=== PATIENT | female | born 1995 | race Caucasian/White ===

== ENCOUNTER 2018-07-26 05:32 | Inpatient (IN) ==
--- NOTE | 2018-07-25 18:58 | History and Physical Report ---
DATE OF ADMISSION: 07/26/2018 REASON FOR ADMISSON: She is scheduled for a primary section on 07/26/2018 on labor and delivery at [facility]. HISTORY OF PRESENT ILLNESS: The patient is a 22-year-old female 1, para 0, who presents to labor and delivery at 40 weeks and 3 days, with a history of macrosomia with the current . She had an ultrasound which revealed the baby to be at the 95th percentile with estimated weight of 4931 g, done yesterday 07/24/2018 by ultrasound revealing a 10 pound 14 ounce baby. She had a biophysical profile of 8/8 at that time. GBS is negative. PAST MEDICAL HISTORY: Significant for polycystic ovarian syndrome and exercise induced asthma. Prior exposure to alcohol in the first and second trimester and chlamydia in the second trimester treated. PAST SURGICAL HISTORY: Reduction of breast, tonsils. No other surgery. FAMILY HISTORY: Noncontributory. REVIEW OF SYSTEMS: Negative. ALLERGIES: No known allergies. MEDICATIONS: Current medications include vitamins. PHYSICAL EXAMINATION: HEENT: Within normal limits. LUNGS: Clear to auscultation. CARDIOVASCULAR: Regular rate and rhythm. GASTROINTESTINAL: Abdomen is soft, nontender, gravid. heart tone category 1. NEUROLOGIC: No neurologic disorders. SKIN: Warm and dry. No rash. ASSESSMENT: Term with macrosomia. I discussed pros and cons of elective primary section versus trial of labor. The patient opted for section due to increased risk of shoulder dystocia and trauma, consented for above. We will proceed with primary section.
[2018-07-26] MEDS ORDERED: LACTATED RINGER'S 1,000 ML IV SCH ×3 (05:45→09:15)
[2018-07-26] MEDS ORDERED: CEFAZOLIN 3,000 MG in DEXTROSE 5% 50 ML IV STA (05:48)
[2018-07-26] MEDS ORDERED: CITRIC ACID/SODIUM CITRATE 15 ML UDC PO STA (05:49)
[2018-07-26 06:02] LABS: Basophils # (auto) 0.01 K/uL (0-0.2); Basophils % (auto) 0.1 %; Eosinophils # (auto) 0.08 K/uL (0-0.5); Eosinophils % (auto) 0.8 %; Hematocrit (blood only) 37.9 % (37-47); Hemoglobin 12.7 g/dL (12.0-16.0); Immature Granulocytes # (auto) 0.06 K/uL (0.00-0.02); Immature Granulocytes % (auto) 0.6 %; Lymphocytes # (auto) 1.68 K/uL (1.2-3.4); Lymphocytes % (auto) 16.2 %; Mean Platelet Volume 10.3 fL (7.4-10.4); Monocytes # (auto) 0.56 K/uL (0.11-0.59); Monocytes % (auto) 5.4 %; Neutrophils # (auto) 8.01 K/uL (1.4-6.5); Neutrophils % (auto) 76.9 %; Platelet Count 200 K/uL (130-400); RDW Standard Deviation 43.7 fL (36.4-46.3); Red Blood Count 4.74 M/uL (4.2-5.4)
[2018-07-26 06:08] LABS: Mean Corpuscular Hgb Conc 33.5 g/dL (32-36)
--- NOTE | 2018-07-26 06:59 | Anesthesiology Consultation ---
Date of Service July 26, 2018 Assessment & Plan Chart Review Chart Review: Acceptable Risk for Surgery and Patient NOT seen in Pre Admission Testing Consults Requested none ASA ASA2 Proposed Anesthesia Anesthesia Type: Spinal Risk / Benefits Reviewed With: PT / POA / Parent / Guardian, Accepts Plan and Informed Consent Obtained NPO Date Last Intake of Fluids: 07/25/18 Time Last Intake of Fluids: 21:00 Date Last Intake of Solids: 07/25/18 Time Last Intake of Solids: 20:00 History Surgery Operation Date: 07/26/18 07:30 Proposed Procedures p Section in LD - Benson Dubois MD Height/Weight Height: 5 ft 11 in Weight: 119.295 kg Allergies Allergy/AdvReac Type Severity Reaction Status Date / Time No Known Allergies Allergy Verified 07/25/18 12:03 Medications Home Medications Medication Instructions Recorded Confirmed Last Taken PNV cmb#95-ferrous fumarate-FA 1 tab PO QAM 07/25/18 07/26/18 07/25/18 09:00 [] Active Medications Generic Name Dose Route Start Last Admin Trade Name Freq PRN Reason Stop Dose Admin Lactated Ringer's 1,000 mls @ 125 mls/hr 07/26/18 06:37 07/26/18 07:04 Lr IV 08/25/18 06:36 125 mls/hr .Q8H TOÑITO Administration Past Medical History Medical History Asthma SPORTS INDUCED PCOS (polycystic ovarian syndrome) Past Surgical History Surgical History [place] teeth removed Hx of breast reduction, elective Hx of tonsillectomy Past Anesthesia History No Hx of Anesthesia Complications History of PONV No Motion Sickness Screening History of Motion Sickness: Yes Social History Smoking Status: Never smoker Do You Dip or Chew Tobacco: No Hx Alcohol Use: Yes (Used before found out was at 24wks) Alcohol type: beer and hard liquor alcohol intake frequency: a few times a month Hx Substance Use: No substance use type: does not use Exercise / Class Metabolic Activity II 4-5 Yardwork/Stairs/Walk up hill Negative for chest pain or shortness of breath. Review of Systems Patient denies active symptoms of GERD. Patient denies history of abnormal bleeding or bleeding disorder. Patient denies active use of anticoagulants. Patient denies numbness, tingling or weakness in his lower extremities. Patient denies numbness, tingling or weakness in upper extremities. Physical Exam Vital Signs Last Vital Signs Temp 36.7 C 07/26/18 05:50 Pulse 107 H 07/26/18 05:50 Resp 18 07/26/18 05:50 BP 126/78 07/26/18 05:50 Constitutional not obese (Gravid uterus ) ENMT Mouth: no TMJ abnormality and oral opening not small Thyromental Distance: > or= 3.5 Finger Breadths Mallampati Class: II Neck normal visual inspection; neck extension not limited Respiratory normal respiratory effort Auscultation: lungs clear to auscultation bilaterally Cardiovascular Rate/Rhythm: regular rate and regular rhythm Heart Sounds: no murmur Psychiatric A+Ox3, euthymic affect Orientation: alert and oriented x 3 Testing Laboratory Results 07/26/18 05:50
[2018-07-26] MEDS ORDERED: CEFAZOLIN 2000MG 2,000 MG/15 ML SYR IV SCH (07:00)
--- NOTE | 2018-07-26 07:19 | History & Physical Bridge Note ---
Date of Service July 26, 2018 History & Physical Bridge Note I have examined the patient, reviewed the History & Physical and in the interval since the performance of the History & Physical I have noted the following changes of clinical significance: no changes noted
[2018-07-26] MEDS ORDERED: MoRPHine SULFATE PF 1 MG/ML 10 ML AMP/VIAL ONE (07:25)
[2018-07-26] MEDS ORDERED: fentaNYL citrate 100 MCG/2 ML VIAL ONE (07:25)
[2018-07-26] MEDS ORDERED: ONDANSETRON INJ 2 MG/ML 2 ML VIAL ONE (08:11)
[2018-07-26] MEDS ORDERED: OXYTOCIN 10 UNITS/ML VIAL ONE (08:11)
[2018-07-26] MEDS ORDERED: KETOROLAC 30 MG/ML VIAL ONE (08:30)
[2018-07-26] MEDS ORDERED: PHENYLEPHRINE 100MCG/ML 5ML SYR ONE (08:54)
[2018-07-26] MEDS ORDERED: ePHEDrine sulfate 50 MG/ML SYR ONE (08:54)
--- NOTE | 2018-07-26 09:04 | Post Operative Brief Note ---
Immediate Post Op Note v1 Date of Surgery July 26, 2018 Pre & Post Diagnosis Operation Date: 07/26/18 07:30 Pre-Op Diagnosis: Macrosomia Post-Op Diagnosis: macrosmia, Post-dates Procedure Operation Date: 07/26/18 07:30 Actual Procedures p Section in LD(Bilateral) - Benson Dubois MD Surgeon Benson Dubois MD Manager Biostatistics Dr. Guaman Estimated Blood Loss 600 Findings Consistent with Post-Op Diagnosis Drains Blevins Catheter
[2018-07-26] MEDS ORDERED: MEASLES, MUMPS & RUBELLA VIRUS VIAL SQ ONE (09:06)
[2018-07-26] MEDS ORDERED: BENZOCAINE 20% AER SPR 82.5 GM CAN EXT PRN (09:06)
[2018-07-26] MEDS ORDERED: MAGNESIUM HYDROXIDE SUSP 30 ML UDC PO PRN (09:06)
[2018-07-26] MEDS ORDERED: PROMETHAZINE HCL 25 MG in SODIUM CHLORIDE 0.9% 50 ML IV PRN (09:06)
[2018-07-26] MEDS ORDERED: SENNA 8.6 MG TAB PO PRN (09:06)
[2018-07-26] MEDS ORDERED: DIPHTHERIA/TETANUS/PERTUSSIS 0.5 ML SYR/VIAL IM ONE (09:06)
[2018-07-26] MEDS ORDERED: HYDROCORTISONE ACETATE 25 MG SUPP PR PRN (09:06)
[2018-07-26] MEDS ORDERED: SUPERCREAM 0.870% 15 GM JAR EXT PRN (09:06)
[2018-07-26] MEDS ORDERED: ACETAMINOPHEN 1000 MG/100 ML IV IV PRN (09:11)
[2018-07-26] MEDS ORDERED: NALOXONE HCL 1 MG in SODIUM CHLORIDE 0.9% 1000ML 1,000 ML IV PRN (09:12)
[2018-07-26] MEDS ORDERED: NALOXONE HCL 0.4 MG/1 ML VIAL/CARP IV PRN (09:12)
[2018-07-26] MEDS ORDERED: NALBUPHINE HCL INJ 10 MG/ML AMP IV PRN (09:12)
[2018-07-26] MEDS ORDERED: HYDROmorphone INJ 0.5 MG/0.5 ML SYR IV PRN (09:12)
[2018-07-26] MEDS ORDERED: ePHEDrine sulfate 50 MG/ML AMP IV PRN (09:12)
[2018-07-26] MEDS ORDERED: LACTATED RINGER'S 500 ML IV PRN (09:12)
[2018-07-26] MEDS ORDERED: ONDANSETRON INJ 2 MG/ML 2 ML VIAL IV PRN (09:12)
[2018-07-26] MEDS ORDERED: NALOXONE HCL 0.08 MG in SYRINGE 1.8 ML IV PRN (09:12)
[2018-07-26] MEDS ORDERED: DiphenhydrAMINE HCL 50 MG/ML VIAL IV PRN (09:12)
[2018-07-26] MEDS ORDERED: MoRPHine SULFATE PF 1 MG/ML 10 ML AMP/VIAL INT SPINAL ONE (09:12)
[2018-07-26] MEDS ORDERED: DC INTRASPINAL MORPHINE SCH (09:15)
[2018-07-26] MEDS ORDERED: NO NARCOTICS OR SEDATIVES SCH (09:15)
[2018-07-26] MEDS ORDERED: SODIUM CHLORIDE 0.9% 1000ML 1,000 ML IV SCH (09:15)
--- NOTE | 2018-07-26 10:36 | Anesthesiology Progress Note ---
Date of Service July 26, 2018 Anesthesia Post Procedure Vital Signs Vital Signs: Temp Pulse Resp BP Pulse Ox 07/26/18 10:35 86 98 07/26/18 10:30 103 H 98 07/26/18 10:26 94 H 105/60 07/26/18 10:25 88 98 07/26/18 10:20 101 H 98 07/26/18 10:18 18 07/26/18 10:16 104 H 105/57 L 07/26/18 10:15 99 H 97 07/26/18 10:10 108 H 18 98 07/26/18 10:07 113 H 96/58 L 07/26/18 10:06 116 H 87/66 L 07/26/18 10:05 102 H 97 07/26/18 10:00 111 H 18 98 07/26/18 09:56 104 H 107/52 L 07/26/18 09:55 112 H 98 07/26/18 09:51 112 H 94 07/26/18 09:50 109 H 18 95 07/26/18 09:48 100 H 121/61 07/26/18 09:45 110 H 97 07/26/18 09:43 113 H 240/134 H 07/26/18 09:40 112 H 18 97 07/26/18 09:35 115 H 96 07/26/18 09:30 117 H 18 98 07/26/18 09:25 111 H 99 07/26/18 09:20 112 H 20 93 07/26/18 09:16 84 105/57 L 07/26/18 09:15 100 H 100 07/26/18 09:14 98 H 92 07/26/18 09:10 36.2 C L 91 H 20 100 07/26/18 09:05 93 H 118/58 L 100 07/26/18 05:50 36.7 C 107 H 18 126/78 07/26/18 05:47 107 H 126/78 Notes Mental Status: alert / awake / arousable and participated in evaluation Nausea / Vomiting: adequately controlled Pain: adequately controlled Airway Patency, RR, SpO2: stable & adequate BP & HR: stable & adequate Hydration State: stable & adequate Neuraxial Anesthesia: was administered and sensory block is resolving Anesthetic Complications: no major complications apparent
[2018-07-26] MEDS: OXYTOCIN 30 UNITS in LACTATED RINGER'S 1,000 ML IV SCH ×2 (11:29→20:14)
--- NOTE | 2018-07-26 12:58 | Operative Report ---
DATE OF OPERATION: 07/26/2018 PREOPERATIVE DIAGNOSIS: macrosomia. POSTOPERATIVE DIAGNOSIS: macrosomia. PROCEDURE: Primary section, low segment, transverse. SURGEON: Benson Dubois MD. WOOD ROOM HAND: Susana Guaman MD. ANESTHESIA: Spinal with Duramorph. TOTAL FLUIDS: 2200 mL. TOTAL URINE OUTPUT: 300 mL. ESTIMATED BLOOD LOSS: 600 mL. FINDINGS: Live male, Apgars 9 and 10. Cord around the neck x1. weight 9 pounds 10 ounces CLINICAL HISTORY: The patient is a 22-year-old female 1, para 0 at 40 weeks and 3 days, who was admitted for an elective primary section for macrosomia. Patient was given informed consent regarding risk of delivery with complications including shoulder dystocia and injury versus primary section. The estimated weight was almost 5000 g by ultrasound done several days ago. Patient opted for a primary section. She was given informed consent including the risks, benefits, and alternatives to the procedure. A timeout was called prior to the start of the procedure, and antibiotics were given preop. DESCRIPTION OF PROCEDURE: Under satisfactory spinal anesthesia, the patient was prepped and draped in the usual sterile fashion. A low Pfannenstiel incision was made entering into the abdominal cavity in successive layers without difficulty. Upon entering into the abdominal cavity, Metzenbaums were used to create a bladder flap. This was sharply dissected down. A low segment transverse incision was made. The incision was widened in the AP diameter. Amniotic sac was nicked, clear. Infant was delivered from the vertex presentation with the aid of fundal pressure. There was a nuchal cord x1 that was reduced at the time of delivery. The cord was doubly clamped and cut. Baby was handed to agriculture professor. Live male, Apgars were 9 and 10, weight 9 pounds 10 ounces. Cord blood was obtained. Placenta was then delivered spontaneously and intact. Uterus was then exteriorized. Ring forceps were then used to grab both angles in the inferior margin, another ring was then used to dilate the cervix. Following this, uterus was closed in a double layered closure starting with a 0 Vicryl suture in a continuous interlocking fashion followed by a second imbricating suture of 0 Vicryl suture. Tubes and ovaries bilaterally were found to be within normal limits. The contents of the uterine cavity were then irrigated to clear. The initial sponge, needle, instrument counts were found to be correct. Uterus was placed back into the normal anatomical position. Both angles were inspected. Gutters were inspected, no active bleeding noted. The fascia was then reapproximated from both ends using 0 Vicryl suture in a continuous fashion. Subcuticular space was then irrigated. The subcuticular layer was closed with 3-0 plain suture in an interrupted fashion, and the subcuticular skin layer was then closed with 4-0 Monocryl suture. Steri-Strips were then applied. Clear urine was noted from the Blevins. The estimated blood loss was 600 mL. At the end of the procedure, a PACU dressing was applied. After the dressing was on, the patient was then placed supine on a stretcher and taken to recovery room in stable condition. I attest to the content of the Intraoperative Record and any orders documented therein. Any exception s are noted below.
[2018-07-26] MEDS: SIMETHICONE 80 MG CHEW PO SCH ×3 (15:30→20:13)
[2018-07-26] MEDS: DOCUSATE SODIUM 100 MG CAP PO SCH (20:13)
[2018-07-26] MEDS: KETOROLAC 30 MG/ML VIAL IV PRN (20:14)
[2018-07-27] MEDS: KETOROLAC 30 MG/ML VIAL IV PRN (01:53)
[2018-07-27] MEDS: OXYTOCIN 30 UNITS in LACTATED RINGER'S 1,000 ML IV SCH (04:01)
[2018-07-27 06:24] LABS: Hematocrit (blood only) 26.3 % (37-47); Hemoglobin 8.6 g/dL (12.0-16.0); Mean Corpuscular Hgb Conc 32.7 g/dL (32-36); Mean Corpuscular Volume 80.2 fL (80-100); Mean Platelet Volume 10.1 fL (7.4-10.4); Platelet Count 145 K/uL (130-400); RDW Coefficient of Variation 15.4 % (11.5-14.5); RDW Standard Deviation 44.8 fL (36.4-46.3); Red Blood Count 3.28 M/uL (4.2-5.4); White Blood Count 12.98 K/uL (4.8-10.8)
[2018-07-27 07:13] LABS: Basophils # (auto) 0.02 K/uL (0-0.2); Basophils % (auto) 0.2 %; Eosinophils # (auto) 0.08 K/uL (0-0.5); Eosinophils % (auto) 0.6 %; Immature Granulocytes # (auto) 0.03 K/uL (0.00-0.02); Immature Granulocytes % (auto) 0.2 %; Lymphocytes # (auto) 1.46 K/uL (1.2-3.4); Lymphocytes % (auto) 11.2 %; Monocytes # (auto) 0.86 K/uL (0.11-0.59); Monocytes % (auto) 6.6 %; Neutrophils # (auto) 10.53 K/uL (1.4-6.5); Neutrophils % (auto) 81.2 %; RBC Morphology Unremarkable
[2018-07-27] MEDS ORDERED: KETOROLAC 30 MG/ML VIAL IV PRN (08:01)
[2018-07-27] MEDS ORDERED: MEPERIDINE HCL 50 MG/ML CARP IV PRN (08:01)
[2018-07-27] MEDS ORDERED: DiphenhydrAMINE HCL 50 MG/ML VIAL IV PRN (08:01)
[2018-07-27] MEDS ORDERED: ONDANSETRON INJ 2 MG/ML 2 ML VIAL IV PRN (08:01)
[2018-07-27] MEDS: IBUPROFEN 600 MG TAB PO PRN ×4 (08:10→21:51)
[2018-07-27] MEDS: OXYCODONE/ACETAMINOPHEN 5mg/325mg TAB PO PRN ×4 (08:10→21:51)
[2018-07-27] MEDS: PRENATAL VITAMIN 1 TAB PO SCH (08:13)
[2018-07-27] MEDS: SIMETHICONE 80 MG CHEW PO SCH ×4 (08:13→20:08)
[2018-07-27] MEDS: DOCUSATE SODIUM 100 MG CAP PO SCH ×2 (08:13→20:08)
[2018-07-27] MEDS: FERROUS SULFATE 325 MG TAB PO SCH (08:13)
[2018-07-27] MEDS ORDERED: NON-FORMULARY MEDICATION (Pnv Cmb#95-Ferrous Fumarate-Fa [Prenatal] 1 TAB) PO SCH (09:00)
--- NOTE | 2018-07-27 09:32 | Obstetrical Progress Note ---
Date of Service July 27, 2018 Assessment & Plan (1) delivery delivered: c/sec day 31 pt doing well continue day #1 care Subjective Ambulation: ambulating normally Voiding: no voiding problems Passing Gas:: Yes Diet Tolerance:: clear liquids Lochia:: Small Feeding Type:: breast feeding Review of Systems All systems reviewed & are unremarkable except as noted in HPI & below Physical Exam Vital Signs (Past 24 Hours) Last Vital Signs Temp 36.8 C 07/27/18 04:00 Pulse 94 H 07/27/18 04:00 Resp 18 07/27/18 06:00 BP 94/57 L 07/27/18 04:00 Pulse Ox 97 07/27/18 06:00 Constitutional WD/WN, vitals as above well developed and well nourished Eyes PERRL, conjunctivae normal, anicteric sclerae ENMT external ear and nose normal, oropharynx normal Neck trachea midline, no thyromegaly Respiratory normal respiratory effort, lungs clear to auscultation Cardiovascular RRR, no murmur, no edema Chest (Breasts) normal inspection/palpation of breasts Gastrointestinal (Abdomen) normal bowel sounds, soft, nontender, no hepatosplenomegaly Musculoskeletal no cyanosis or clubbing, extremities motor strength 5/5 Skin no rashes, warm and dry + incision (Clean,dry and intact) Neurologic patellar DTR's 2+ bilat, sensation intact Psychiatric A+Ox3, euthymic affect Genitourinary normal external appearance Lymphatic no cervical or axillary lymphadenopathy
[2018-07-27] MEDS ORDERED: BISACODYL 5 MG TABEC PO SCH (20:00)
[2018-07-28] MEDS: OXYCODONE/ACETAMINOPHEN 5mg/325mg TAB PO PRN ×2 (06:09→15:31)
[2018-07-28] MEDS: IBUPROFEN 600 MG TAB PO PRN ×2 (06:09→15:30)
[2018-07-28 07:08] LABS: Hematocrit (blood only) 25.7 % (37-47); Hemoglobin 8.3 g/dL (12.0-16.0)
[2018-07-28] MEDS: PRENATAL VITAMIN 1 TAB PO SCH (08:39)
[2018-07-28] MEDS: DOCUSATE SODIUM 100 MG CAP PO SCH ×2 (08:39→21:11)
[2018-07-28] MEDS: SIMETHICONE 80 MG CHEW PO SCH ×4 (08:39→21:10)
[2018-07-28] MEDS: FERROUS SULFATE 325 MG TAB PO SCH (08:39)
[2018-07-28] MEDS ORDERED: BISACODYL 10 MG SUPP PR PRN (09:06)
--- NOTE | 2018-07-28 09:47 | Surgery Progress Note ---
Date of Service July 28, 2018 Subjective doing well pain controlled passing gas tolerating diet Physical Exam 2 Vital Signs (Past 24 Hours): Last Vital Signs Temp 36.6 C 07/28/18 07:40 Pulse 90 07/28/18 07:40 Resp 16 07/28/18 07:40 BP 105/69 07/28/18 07:40 Pulse Ox 99 07/28/18 07:40 Constitutional: WD/WN, vitals as above comfortable abdomen soft non- tender fundus firm incision clean dry intact no edema neg Steffen's Will tent d/c in AM Results & Data Laboratory Results Laboratory Results - last 48 hr 07/27/18 07/28/18 05:58 06:55 WBC 12.98 H RBC 3.28 L Hgb 8.6 L D 8.3 L Hct 26.3 L 25.7 L MCV 80.2 MCH 26.2 MCHC 32.7 RDW Std Deviation 44.8 RDW Coeff of Jordan 15.4 H Plt Count 145 MPV 10.1 Immature Gran % (Auto) 0.2 Neut % (Auto) 81.2 Lymph % (Auto) 11.2 Peach % (Auto) 6.6 Eos % (Auto) 0.6 Baso % (Auto) 0.2 Immature Gran # (Auto) 0.03 H Neut # (Auto) 10.53 H Lymph # (Auto) 1.46 Peach # (Auto) 0.86 H Eos # (Auto) 0.08 Baso # (Auto) 0.02 RBC Morphology Unremarkable
[2018-07-29] MEDS: IBUPROFEN 600 MG TAB PO PRN ×2 (04:24→12:30)
[2018-07-29] MEDS: OXYCODONE/ACETAMINOPHEN 5mg/325mg TAB PO PRN ×2 (04:24→12:30)
[2018-07-29] MEDS: PRENATAL VITAMIN 1 TAB PO SCH (09:04)
[2018-07-29] MEDS: SIMETHICONE 80 MG CHEW PO SCH ×2 (09:04→12:28)
[2018-07-29] MEDS: DOCUSATE SODIUM 100 MG CAP PO SCH (09:04)
[2018-07-29] MEDS: FERROUS SULFATE 325 MG TAB PO SCH (09:05)
--- NOTE | 2018-07-29 09:26 | Obstetrical Progress Note ---
Date of Service July 29, 2018 Subjective Patient is seen and examined. She feels well, no complaints. Pain is under control with oral meds. Ambulating without dizziness Voiding without difficulty Tolerating regular diet with out N&V Flatus + BM + Bleeding is minimal No fever/ chills/ CP/ SOB/ N&V/ Leg pain Breast and bottle feeding without problems Vital Signs Temp Pulse Resp BP 07/29/18 07:45 36.4 C L 86 20 118/80 07/29/18 00:00 36.5 C 89 18 104/67 07/28/18 17:55 36.6 C 91 H 20 113/77 Lab Results 07/26/18 07/26/18 07/27/18 Range/Units 05:50 05:50 05:58 WBC 10.40 12.98 H (4.8-10.8) K/uL RBC 4.74 3.28 L (4.2-5.4) M/uL Hgb 12.7 8.6 L D (12.0-16.0) g/dL Hct 37.9 26.3 L (37-47) % MCV 80.0 80.2 (80-100) fL MCH 26.8 26.2 (25-34) pg MCHC 33.5 32.7 (32-36) g/dL RDW Std Deviation 43.7 44.8 (36.4-46.3) fL RDW Coeff of Jordan 15.0 H 15.4 H (11.5-14.5) % Plt Count 200 145 (130-400) K/uL MPV 10.3 10.1 (7.4-10.4) fL Immature Gran % (Auto) 0.6 0.2 % Neut % (Auto) 76.9 81.2 % Lymph % (Auto) 16.2 11.2 % Knott % (Auto) 5.4 6.6 % Eos % (Auto) 0.8 0.6 % Baso % (Auto) 0.1 0.2 % Immature Gran # (Auto) 0.06 H 0.03 H (0.00-0.02) K/uL Neut # (Auto) 8.01 H 10.53 H (1.4-6.5) K/uL Lymph # (Auto) 1.68 1.46 (1.2-3.4) K/uL Knott # (Auto) 0.56 0.86 H (0.11-0.59) K/uL Eos # (Auto) 0.08 0.08 (0-0.5) K/uL Baso # (Auto) 0.01 0.02 (0-0.2) K/uL RBC Morphology Unremarkable Blood Type O Positive Antibody Screen NEGATIVE 07/28/18 Range/Units 06:55 WBC (4.8-10.8) K/uL RBC (4.2-5.4) M/uL Hgb 8.3 L (12.0-16.0) g/dL Hct 25.7 L (37-47) % MCV (80-100) fL MCH (25-34) pg MCHC (32-36) g/dL RDW Std Deviation (36.4-46.3) fL RDW Coeff of Jordan (11.5-14.5) % Plt Count (130-400) K/uL MPV (7.4-10.4) fL Immature Gran % (Auto) % Neut % (Auto) % Lymph % (Auto) % Knott % (Auto) % Eos % (Auto) % Baso % (Auto) % Immature Gran # (Auto) (0.00-0.02) K/uL Neut # (Auto) (1.4-6.5) K/uL Lymph # (Auto) (1.2-3.4) K/uL Knott # (Auto) (0.11-0.59) K/uL Eos # (Auto) (0-0.5) K/uL Baso # (Auto) (0-0.2) K/uL RBC Morphology Blood Type Antibody Screen PE: General: Alert, orientedx3, NAD CVS: S1S2 RRR Lungs; CTAB Abd: soft, NT, ND, BS+, fundus firm, below Umbilicus Incision/ Dressing: Clean, dry, intact Perineum intact, Lochia rubra minimal Ext; NT, no edema AP: 22 yo s/p C Section, pod# 3 VSS Afebrile doing well Continue routine postop care Encourage ambulation, PO intake All questions were answered Discussed when to call d/c home after CBC D/C home [] Physical Exam 2 Vital Signs (Past 24 Hours): Last Vital Signs Temp 36.4 C L 07/29/18 07:45 Pulse 86 07/29/18 07:45 Resp 20 07/29/18 07:45 BP 118/80 07/29/18 07:45 Pulse Ox 99 07/28/18 07:40
[2018-07-29 09:38] LABS: Basophils # (auto) 0.03 K/uL (0-0.2); Basophils % (auto) 0.3 %; Eosinophils # (auto) 0.34 K/uL (0-0.5); Eosinophils % (auto) 3.3 %; Hematocrit (blood only) 28.5 % (37-47); Hemoglobin 9.3 g/dL (12.0-16.0); Immature Granulocytes # (auto) 0.03 K/uL (0.00-0.02); Immature Granulocytes % (auto) 0.3 %; Lymphocytes # (auto) 1.87 K/uL (1.2-3.4); Lymphocytes % (auto) 18.2 %; Mean Corpuscular Hgb Conc 32.6 g/dL (32-36); Mean Corpuscular Volume 81.9 fL (80-100); Mean Platelet Volume 9.6 fL (7.4-10.4); Monocytes # (auto) 0.54 K/uL (0.11-0.59); Monocytes % (auto) 5.2 %; Neutrophils # (auto) 7.48 K/uL (1.4-6.5); Neutrophils % (auto) 72.7 %; Platelet Count 226 K/uL (130-400); RDW Coefficient of Variation 15.7 % (11.5-14.5); RDW Standard Deviation 45.8 fL (36.4-46.3); Red Blood Count 3.48 M/uL (4.2-5.4); White Blood Count 10.29 K/uL (4.8-10.8)
--- NOTE | 2018-07-29 15:06 | Psychiatric Consultation ---
Date of Consultation July 29, 2018 Impression / Recommendations Impression 22 yo female with onset of smood disturbance secondary to unexpected loss of baby's father by heroin OD a few hours prior to delivery. She is currently exhibiting signs of an acute grief reaction. (1) Adjustment disorder with depressed mood: she is agreeable to see a therapist again and liaison to facilitate list of providerse, mother is supportive of this recommendation reviewed that if symptoms fail to improve over the next 2 weeks, a trial of an SSRI is likely indicated. Reviewed with patient that SSRIs, particularly low dose Zoloft, can be prescribed safely during breast feeding. SSRIs to carry warnings re: SI risk in patients 24 yo and younger would monitor with EPDS or another rating scale of fire investigation manager or PCP choice programs like [facility] included home visits in past, sarbjit unsure if available in their area Risk Factors Assessment Do You Have Access To A Gun?: No CPT Code mid level consult 16985 Psych History Chief Complaint "it's just alot, I need time to think". History of Present Illness Mae reports a feeling of emptiness mixed with happiness for of [place]. She had broken up with her boyfriend but maintained a relationship with his family due to the . He of an unintentional heroin OD 5 hours before she went into labor. Baby was born by and mother is at bedside for support. She will be staying with parents for 3 months before returning to work. She has been somewhat in shock but is now able to talk about the rememberances planned for the services. She is glad to have family support and is willing to meet with a counselor/therapist again in the [place] area near her parent's home. She completed a [place] Depression Scale with the liaison nurse . She continues to deny ever having suicidal ideation. She plans to breastfeed and doesn't believe she could make any decisions about antidepressant medication at this time. Her sleep has been disrupted since delivery and appetite too but mother feels seems to smile a bit at times today. She is reportedly bonding well with the baby. Past Psychiatric History Previous Psych History: 1 year of therapy when in [facility] Outpatient Services: no current Previous Psych Admissions: none Do You Have Access To A Gun?: No History of Previous Suicide Attempt: No Past Medication Trials: none Allergies Allergy/AdvReac Type Severity Reaction Status Date / Time No Known Allergies Allergy Verified 07/25/18 12:03 Home Medications Home Medications Medication Instructions Recorded Confirmed Type PNV cmb#95-ferrous fumarate-FA 1 tab PO QAM 07/25/18 07/26/18 History [] ferrous sulfate 325 mg PO QAM #40 tab 07/29/18 Rx ibuprofen 600 mg PO Q6 PRN #30 tab 07/29/18 Rx oxycodone-acetaminophen [Percocet] 1 tab PO Q4H #20 tab 07/29/18 Rx Family History anxiety and depression in father Substance Abuse History denied Personal History Living Arrangements: with family for now Born In: [place] Highest Grade Completed: High School Graduate Highest Grade Completed Comment: AYSHA Oquendoordjennifer 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, 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) Marital Status: Single Number Of Children: 1 Beliefs That Will Affect Care: None History of Legal Problems: no Patient History Medical History Asthma SPORTS INDUCED PCOS (polycystic ovarian syndrome) Surgical History [place] teeth removed Hx of breast reduction, elective Hx of tonsillectomy Social History marital status: Single Current Living Situation: Alone Other Information That Helps Us Care for You: No Feels Safe at Home: Yes Safety Concerns: Feels Safe At This Time Smoking Status: Never smoker Do You Dip or Chew Tobacco: No Hx Alcohol Use: Yes (Used before found out was at 24wks) Alcohol type : beer and hard liquor Alcohol Intake Frequency: a few times a month Hx Substance Use: No Beliefs That Will Affect Care: None Preferred Language: Pakistani Physical Exam Mental Examination Appearance: Well Groomed Eye Contact: Fleeting Contact Motor Behavior: Unremarkable Speech: Normal Mood: Depressed Affect: Congruent Thought Process: Intact Thought Content: Intact (denied suicidal or homicidal ideation) Hallucinations: None Insight: Fair Judgement: Fair Vital Signs (Past 24 Hours) Last Vital Signs Temp 36.4 C L 07/29/18 11:11 Pulse 86 07/29/18 11:11 Resp 20 07/29/18 11:11 BP 118/80 07/29/18 11:11 Pulse Ox 99 07/29/18 11:11 Review of Systems All systems reviewed & are unremarkable except as noted in HPI & below Results & Data Medications Administered Docusate Sodium (Colace) 100 mg PO BID TOÑITO Stop: 03/01/19 20:59 Last Admin: 07/29/18 09:04 Dose: 100 mg Admin: 07/28/18 21:11 Dose: Not Given Admin: 07/28/18 08:39 Dose: 100 mg Admin: 07/27/18 20:08 Dose: 100 mg Admin: 07/27/18 08:13 Dose: 100 mg Admin: 07/26/18 20:13 Dose: 100 mg Ferrous Sulfate (Feosol) 325 mg PO QAM [facility] Stop: 08/26/18 08:59 Last Admin: 07/29/18 09:05 Dose: 325 mg Admin: 07/28/18 08:39 Dose: 325 mg Admin: 07/27/18 08:13 Dose: 325 mg Oxytocin 30 units/ Lactated (Ringer's) 1,003 mls @ 125 mls/hr IV .Q8H2M [facility] Stop: 08/25/18 09:59 Last Infusion: 07/27/18 06:40 Dose: 125 mls/hr Admin: 07/27/18 04:01 Dose: 125 mls/hr Infusion: 07/27/18 04:01 Dose: 125 mls/hr Infusion: 07/26/18 22:00 Dose: 125 mls/hr Admin: 07/26/18 20:14 Dose: 125 mls/hr Infusion: 07/26/18 19:31 Dose: 125 mls/hr Infusion: 07/26/18 15:29 Dose: 125 mls/hr Admin: 07/26/18 11:29 Dose: 125 mls/hr Ibuprofen (Motrin) 600 mg PO Q4H PRN PRN Reason: Pain Stop: 08/25/18 09:05 Last Admin: 07/29/18 12:30 Dose: 600 mg Admin: 07/29/18 04:24 Dose: 600 mg Admin: 07/28/18 15:30 Dose: 600 mg Admin: 07/28/18 06:09 Dose: 600 mg Admin: 07/27/18 21:51 Dose: 600 mg Admin: 07/27/18 17:42 Dose: 600 mg Admin: 07/27/18 14:08 Dose: 600 mg Admin: 07/27/18 08:10 Dose: 600 mg Ondansetron HCl (Zofran) 4 mg IV Q4H PRN PRN Reason: Nausea And Vomiting Stop: 08/26/18 08:00 Last Admin: 07/27/18 21:51 Dose: 4 mg Oxycodone/Acetaminophen (Percocet 5mg/325mg) 1 - 2 tab PO Q4H PRN PRN Reason: Pain Stop: 08/10/18 08:00 Last Admin: 07/29/18 12:30 Dose: 1 tab Admin: 07/29/18 04:24 Dose: 1 tab Admin: 07/28/18 15:31 Dose: 1 tab Admin: 07/28/18 06:09 Dose: 1 tab Admin: 07/27/18 21:51 Dose: 1 tab Admin: 07/27/18 17:42 Dose: 1 tab Admin: 07/27/18 14:08 Dose: 1 tab Admin: 07/27/18 08:10 Dose: 1 tab Prenat Multivit/Twiggs/Iron/Folic Ac ( Vitamin) 1 tab PO QAM [facility] Stop: 08/26/18 08:59 Last Admin: 07/29/18 09:04 Dose: 1 tab Admin: 07/28/18 08:39 Dose: 1 tab Admin: 07/27/18 08:13 Dose: 1 tab Simethicone (Mylicon) 80 mg PO QID [facility] Stop: 08/25/18 12:59 Last Admin: 07/29/18 12:28 Dose: 80 mg Admin: 07/29/18 09:04 Dose: 80 mg Admin: 07/28/18 21:10 Dose: 80 mg Admin: 07/28/18 18:27 Dose: 80 mg Admin: 07/28/18 15:32 Dose: 80 mg Admin: 07/28/18 08:39 Dose: 80 mg Admin: 07/27/18 20:08 Dose: 80 mg Admin: 07/27/18 17:42 Dose: 80 mg Admin: 07/27/18 14:08 Dose: 80 mg Admin: 07/27/18 08:13 Dose: 80 mg Admin: 07/26/18 20:13 Dose: 80 mg Admin: 07/26/18 16:45 Dose: 80 mg Admin: 07/26/18 15:30 Dose: Not Given
--- NOTE | 2018-08-04 12:25 | Discharge Summary ---
REASON FOR ADMISSION AND HOSPITAL COURSE: The patient is a 22-year-old female 1, para 0 who was admitted 07/26/2018 for elective primary section due to macrosomia. The patient had an ultrasound done in the office which revealed macrosomia of approximately 5000 grams. The patient was given the option for a vaginal delivery versus section and she opted for a section due to added risk of possible shoulder dystocia possible injury patient. Hospital course was unremarkable. The patient had a primary section, low segment transverse. I delivered a live male. Apgars were 9 and 10. The weight was 9 pounds 10 ounces. The patient was stable. Hospital course was stable. She was discharged home in stable condition. Regular diet on discharge. Medications on discharge include oxycodone and Motrin. The patient will follow up in 1 week in the office for an incision check and check on the Devin dressing.
== END 2018-07-29 16:08 | disposition home or self-care (01) | DRG 788 ==
LOC: 4S1 05:32 → EDSTATUS 07:30 → 4S2 12:00